=== PATIENT | female | born 2000 | race Caucasian/White ===

== ENCOUNTER 2019-12-16 15:47 | Emergency (ER) | payer MEDICAID ==
[2019-12-16 16:21] VITALS: BP 118/62; PULSE 75; O2SAT 99
--- NOTE | 2019-12-16 16:30 | ERPHSYRPT ---
- History of Present Illness Time Seen by Provider: 12/16/19 16:25 Source: patient Exam Limitations: no limitations Patient Subjective Stated Complaint: pt to ER with complaints of swelling to her chin/neck area. pt states she also feels like she has something wrong with the back of her teeth on the R side. Triage Nursing Assessment: pt A&Ox4. pt ambulatory. afebrile. Physician History: Patient is a 19-year-old female presents to our ED with complaints of swelling under her chin. Symptoms started today. Patient has had the same in the past however it spontaneously resolved. Patient states that she has a slight dental ache at the right posterior molar. Patient also states that the bugle mucosa at this location is a little tender. Symptoms are constant. No fever. No nausea or vomiting. No difficulty swallowing. No difficulty breathing. No trauma. Patient voices no other complaints at this time. Timing/Duration: days (Symptoms started today.) Severity: mild (Patient declined pain medication.) ENT Location: mouth Modifying Factors: Improves With: nothing Associated Symptoms: No ear pain (R), No ear pain (L), No cough, No fever, No chills, No change in hearing, No drooling, No facial pain/swelling, No nasal foreign body, No neck pain, No swollen glands Allergies/Adverse Reactions: codeine Allergy (Verified 12/16/19 16:21) Shortness of Breath SOB Hx Tetanus, Diphtheria Vaccination/Date Given: No Hx Influenza Vaccination/Date Given: No Hx Pneumococcal Vaccination/Date Given: No Immunizations Up to Date: Yes Travel Risk - International Travel Have you traveled outside of the country in past 3 weeks: No Have you or anyone close to you been diagnosed with or: No Do your reside in a community with a known COVID-19 case?: Yes If Yes where:: [place] - Coronavirus Screening Has patient experienced Coronavirus symptoms: No - Review of Systems Constitutional: No Symptoms, No Fever, No Chills Eyes: No Symptoms Ears, Nose, & Throat: No Symptoms Respiratory: No Symptoms, No Cough, No Dyspnea Cardiac: No Symptoms, No Chest Pain, No Edema, No Syncope Abdominal/Gastrointestinal: No Symptoms, No Abdominal Pain, No Nausea, No Vomiting, No Diarrhea Genitourinary Symptoms: No Symptoms, No Dysuria Musculoskeletal: No Symptoms, No Back Pain, No Neck Pain Skin: No Symptoms, No Rash Neurological: No Symptoms, No Dizziness, No Focal Weakness, No Sensory Changes Psychological: No Symptoms Endocrine: No Symptoms Hematologic/Lymphatic: No Symptoms Immunological/Allergic: No Symptoms All Other Systems: Reviewed and Negative - Past Medical History Pertinent Past Medical History: No Neurological History: No Pertinent History ENT History: No Pertinent History Cardiac History: No Pertinent History Respiratory History: No Pertinent History Endocrine Medical History: No Pertinent History GI Medical History: No Pertinent History History: No Pertinent History Psycho-Social History: Depression Female Reproductive Disorders: Other - Past Surgical History Past Surgical History: Yes Neuro Surgical History: No Pertinent History Cardiac: No Pertinent History Respiratory: No Pertinent History Gastrointestinal: No Pertinent History Genitourinary: No Pertinent History Musculoskeletal: No Pertinent History Female Surgical History: No Pertinent History Other Surgical History: TONSILECTOMY - Social History Smoking Status: Current every day smoker How long have you smoked: YR Exposure to second hand smoke: Yes Drug Use: none Patient Lives Alone: No - Female History Hx Last Menstrual Period: 11/19/2019 Hx Now: Yes - Nursing Vital Signs Nursing Vital Signs: Initial Vital Signs Temperature 98.2 F 12/16/19 16:14 Pulse Rate 75 12/16/19 16:14 Respiratory Rate 16 12/16/19 16:14 Blood Pressure 118/62 12/16/19 16:14 O2 Sat by Pulse Oximetry 99 12/16/19 16:14 Pain Scale Pain Intensity 10 - Physical Exam General Appearance: no apparent distress, alert Eye Exam: bilateral eye: normal inspection, PERRL, EOMI Ear Exam: bilateral ear: auricle normal, canal normal, TM normal Nasal Exam: normal inspection Throat Exam: pharynx normal, moist mucus membranes, No dental tenderness, No excessive drooling, No foreign body, No mandibular swelling, No maxillary swelling, No pharynx swelling, No tongue swollen, No tonsillar exudate, No trismus, No uvula swelling (Patient has swelling at the submental area. Physical exam concerning for possible early Tory's angina.) Neck Exam: supple Cardiovascular/Respiratory Exam: normal breath sounds, regular rate/rhythm Abdominal Exam: non-tender, soft Neurologic Exam: alert, oriented x 3, sensation nml, No motor deficits Skin Exam: normal color, warm, dry SpO2 Interpretation: normal SpO2: 99 O2 Delivery: Room Air - Course Nursing assessment & vital signs reviewed: Yes - Progress Progress: improved Progress Note: 12/16/19 16:37 Does the possibility of Tory's angina. Patient advised to undergo a CAT scan to assess for possible abscess formation. Patient declined. Patient does not want any IV. Patient consents to oral antibiotics at this time. She declined IV antibiotics. Patient states she will try outpatient oral antibiotic therapy for the next couple days and if symptoms do not improve she will return to our ED for further evaluation. we discussed the risks of a late or delayed diagnosis including worsening of symptoms, increased risk of morbidity, mortality, the possibility of short and termite technician disability. In spite of her risks, Patient had decided on oral antibiotic at this time. She declined antibiotic administration in our ED and states she will start her oral antibiotics today. 12/16/19 16:43 Counseled pt/family regarding: diagnosis, need for follow-up - Departure Departure Disposition: Home Clinical Impression: Sublingual infection Condition: Stable Critical Care Time: No Referrals: ARIEL WEBB [Primary Care Provider] - Additional Instructions: Discharge/Care Plan KAVYA PEPE XIMENA was seen on 12/16/19 in the Emergency Room. The patient was counseled regarding Diagnosis,Lab results, Imaging studies, need for follow up and when to return to the Emergency Room. Prescriptions given: Discharge Note I have spoken with the patient and/or caregivers. I have explained the patient' s condition, diagnosis and treatment plan based on the information available to me at this time. I have answered the patient's and/or caregiver's questions and addressed any concerns. The patient and/or caregivers have as good understanding of the patient's diagnosis, condition and treatment plan as can be expected at this point. The vital signs have been stable. The patient's condition is stable and appropriate for discharge from the emergency department. The patient will pursue further outpatient evaluation with the primary care physician or other designated or consulting physician as outlined in the discharge instructions. The patient and/or caregivers are agreeable to this plan of care and follow-up instructions have been explained in detail. The patient and/or caregivers have received these instruction. The patient/and or caregivers are aware that any significant change in condition or worsening of symptoms should prompt an immediate return to this or the closest emergency department or call 911. Prescriptions: clindamycin HCL [Clindamycin HCl] 300 mg PO QID 7 Days #28 capsule
== END 2019-12-16 16:43 | disposition home or self-care (01) ==
LOC: ED 15:47
DX: K11.8 Other diseases of salivary glands (principal)
CPT/HCPCS: 99283

== ENCOUNTER 2020-08-05 10:46 | Emergency (ER) | payer SELFPAY ==
[2020-08-05] MEDS ORDERED: Zofran 4 MG/2 ML VIAL IV ONE ×2 (11:11→11:26)
[2020-08-05 11:18] VITALS: O2SAT 98
[2020-08-05] MEDS ORDERED: Zofran 4 MG/2 ML VIAL ONE (11:19)
[2020-08-05 12:03] LABS: BASOPHIL % 0.3 % (0.0-0.4); Basophil (Absolute #) 0.04 (0-0.4); Eosinophil % 2.8 % (0.00-5.0); Hemoglobin 14.1 gm/dl (12.0-16.0); Lymphocyte (Absolute #) 2.36 (1.0-4.6); Lymphocytes % 16.3 % (24.0-44.0); Mean Cell Volume 91.7 fl (78-100); Mean Corpuscular Hemoglobin 30.1 pg (26-32); Mean Corpuscular Hgb Concent. 32.8 g/dl (32-36); Mean Platelet Volume 10.6 fl (7.5-11.0); Monocyte (Absolute #) 0.89 (0.0-1.3); Monocytes % 6.1 % (0.0-12.0); Neutrophil % 74.5 % (36.0-66.0); Platelet Count 278 K/mm3 (150-450); Red Blood Count 4.69 M/mm3 (4.1-5.4); Red Cell Distribution Width 12.9 % (11.5-14.0); White Blood Count 14.5 K/mm3 (4.0-10.5)
[2020-08-05 12:09] VITALS: BP 127/76; PULSE 85
[2020-08-05 12:15] LABS: ALBUMIN 4.3 g/dL (3.5-5.0); ALKALINE PHOSPHATASE 81 U/L (38-126); AMYLASE 61 U/L (30-110); ANION GAP 9.9 MEQ/L (5-15); BLOOD UREA NITROGEN 14 mg/dL (7-17); CHLORIDE 108 mmol/L (98-107); Calcium 9.3 mg/dL (8.4-10.2); Carbon Dioxide 25 mmol/L (22-30); EST GLOMERULAR FILTRATION RATE > 60.0 ML/MIN; Glucose 101 mg/dL (74-106); LIPASE 62 U/L (23-300); SGOT/AST 34 U/L (14-36); SGPT/ALT 56 U/L (0-35); SODIUM 138 mmol/L (137-145); Total Protein 7.5 g/dL (6.3-8.2)
--- NOTE | 2020-08-05 12:48 | ERPHSYRPT ---
- History of Present Illness Time Seen by Provider: 08/05/20 11:03 Source: patient Exam Limitations: no limitations Patient Subjective Stated Complaint: vomiting Triage Nursing Assessment: Patient ambulated back to ED and transferred self to bed. Patient A+O X3. Patient's skin pink, warm and dry. Patient complains of vomiting every morning when she wakes up for one week. Patient states she wakes up and feel shaky in the morning then vomits and feels better. Patient also complains of mouth pain to the right side of cheek. Abdomen soft and round with BS X 4. Physician History: 20 years old fairly healthy female presented in the ER with chief complaint of 1 week history of morning sickness. Patient reports she wakes up, feels shaky and vomits once or twice for almost 1 week on a daily basis and her symptoms imp roved. Denies any abdominal pain associated with it. No diarrhea fever or chills. Denies any cough or shortness of breath. Denies any sick contact. Patient thinks she might be Timing/Duration: week(s) (1), intermittent, improved Severity: moderate Modifying Factors: Improves With: nothing Associated Symptoms: nausea, vomiting, No abdominal pain Allergies/Adverse Reactions: codeine Allergy (Verified 08/05/20 11:03) Shortness of Breath SOB Hx Tetanus, Diphtheria Vaccination/Date Given: No Hx Influenza Vaccination/Date Given: No Hx Pneumococcal Vaccination/Date Given: No Immunizations Up to Date: Yes Travel Risk - International Travel Have you traveled outside of the country in past 3 weeks: No - Coronavirus Screening Are you exhibiting any of the following symptoms?: No Symptoms: Vomiting/Diarrhea Close contact with a COVID-19 positive Pt in past 14-21 Days: No - Review of Systems Constitutional: No Symptoms Eyes: No Symptoms Ears, Nose, & Throat: No Symptoms Respiratory: No Symptoms Cardiac: No Symptoms Abdominal/Gastrointestinal: Nausea, Vomiting Genitourinary Symptoms: No Symptoms Musculoskeletal: No Symptoms Skin: No Symptoms Neurological: No Symptoms Psychological: No Symptoms Endocrine: No Symptoms Hematologic/Lymphatic: No Symptoms Immunological/Allergic: No Symptoms - Past Medical History Pertinent Past Medical History: No Neurological History: No Pertinent History ENT History: No Pertinent History Cardiac History: No Pertinent History Respiratory History: No Pertinent History Endocrine Medical History: No Pertinent History GI Medical History: No Pertinent History History: No Pertinent History Psycho-Social History: Depression Female Reproductive Disorders: Other - Past Surgical History Past Surgical History: Yes Neuro Surgical History: No Pertinent History Cardiac: No Pertinent History Respiratory: No Pertinent History Gastrointestinal: No Pertinent History Genitourinary: No Pertinent History Musculoskeletal: No Pertinent History Female Surgical History: No Pertinent History Other Surgical History: TONSILECTOMY - Social History Smoking Status: Current every day smoker How long have you smoked: YR Exposure to second hand smoke: Yes Drug Use: marijuana Patient Lives Alone: No - Female History Hx Now: No - Nursing Vital Signs Nursing Vital Signs: Initial Vital Signs Temperature 97.7 F 08/05/20 11:04 Pulse Rate 101 H 08/05/20 11:04 Respiratory Rate 18 08/05/20 11:04 Blood Pressure 130/96 08/05/20 11:04 O2 Sat by Pulse Oximetry 98 08/05/20 11:04 Pain Scale Pain Intensity 8 - Physical Exam General Appearance: no apparent distress, alert Eye Exam: PERRL/EOMI, eyes nml inspection Ears, Nose, Throat Exam: normal ENT inspection, TMs normal, pharynx normal Neck Exam: normal inspection, non-tender, supple, full range of motion Respiratory Exam: normal breath sounds, lungs clear, No chest tenderness Cardiovascular Exam: regular rate/rhythm, normal heart sounds Gastrointestinal/Abdomen Exam: soft, normal bowel sounds, No tenderness Back Exam: normal inspection, normal range of motion Extremity Exam: normal inspection, normal range of motion, pelvis stable Neurologic Exam: alert, oriented x 3, cooperative Skin Exam: normal color SpO2 Interpretation: normal SpO2: 98 O2 Delivery: Room Air Ordered Tests: Active Orders 24 hr Category Date Time Status IV Insertion STAT Care 08/05/20 11:11 Completed AMYLASE Stat Lab 08/05/20 11:28 Completed CBC W DIFF Stat Lab 08/05/20 11:28 Completed CMP Stat Lab 08/05/20 11:28 Completed HCG,QUALITATIVE URINE Stat Lab 08/05/20 11:18 Completed LIPASE Stat Lab 08/05/20 11:28 Completed TROPONIN Q3H Lab 08/05/20 11:15 Completed Medication Summary Discontinued Medications Generic Name Dose Route Start Last Admin Trade Name Freq PRN Reason Stop Dose Admin Ondansetron HCl 4 mg 08/05/20 11:11 08/05/20 11:28 Zofran 4 Mg/2 Ml Vial IV 08/05/20 11:12 Not Given STAT ONE Ondansetron HCl Confirm 08/05/20 11:19 Zofran 4 Mg/2 Ml Vial Administered 08/05/20 11:20 Dose 4 mg .ROUTE .STK-MED ONE Ondansetron HCl 4 mg 08/05/20 11:26 08/05/20 11:27 Zofran 4 Mg/2 Ml Vial IV 08/05/20 11:27 4 mg STAT ONE Administration Lab/Rad Data: Laboratory Result Diagrams 08/05/20 11:28 08/05/20 11:28 Laboratory Results 08/05/20 08/05/20 08/05/20 Range/Units 11:28 11:28 11:18 WBC 14.5 H (4.0-10.5) K/mm3 RBC 4.69 (4.1-5.4) M/mm3 Hgb 14.1 (12.0-16.0) gm/dl Hct 43.0 (35-47) % MCV 91.7 (78-100) fl MCH 30.1 (26-32) pg MCHC 32.8 (32-36) g/dl RDW 12.9 (11.5-14.0) % Plt Count 278 (150-450) K/mm3 MPV 10.6 (7.5-11.0) fl Gran % 74.5 H (36.0-66.0) % Eos # (Auto) 0.40 (0-0.5) Absolute Lymphs (auto) 2.36 (1.0-4.6) Absolute Monos (auto) 0.89 (0.0-1.3) Lymphocytes % 16.3 L (24.0-44.0) % Monocytes % 6.1 (0.0-12.0) % Eosinophils % 2.8 (0.00-5.0) % Basophils % 0.3 (0.0-0.4) % Absolute Granulocytes 10.80 H (1.4-6.9) Basophils # 0.04 (0-0.4) Sodium 138 (137-145) mmol/L Potassium 4.0 (3.5-5.1) mmol/L Chloride 108 H (98-107) mmol/L Carbon Dioxide 25 (22-30) mmol/L Anion Gap 9.9 (5-15) MEQ/L BUN 14 (7-17) mg/dL Creatinine 0.60 (0.52-1.04) mg/dL Estimated GFR > 60.0 ML/MIN Glucose 101 (74-106) mg/dL Calcium 9.3 (8.4-10.2) mg/dL Total Bilirubin 0.40 (0.2-1.3) mg/dL AST 34 (14-36) U/L ALT 56 H (0-35) U/L Alkaline Phosphatase 81 (38-126) U/L Troponin I (0.000-0.034) ng/mL Serum Total Protein 7.5 (6.3-8.2) g/dL Albumin 4.3 (3.5-5.0) g/dL Amylase 61 (30-110) U/L Lipase 62 (23-300) U/L Urine HCG, Qual NEGATIVE (Negative) 08/05/20 Range/Units 11:15 WBC (4.0-10.5) K/mm3 RBC (4.1-5.4) M/mm3 Hgb (12.0-16.0) gm/dl Hct (35-47) % MCV (78-100) fl MCH (26-32) pg MCHC (32-36) g/dl RDW (11.5-14.0) % Plt Count (150-450) K/mm3 MPV (7.5-11.0) fl Gran % (36.0-66.0) % Eos # (Auto) (0-0.5) Absolute Lymphs (auto) (1.0-4.6) Absolute Monos (auto) (0.0-1.3) Lymphocytes % (24.0-44.0) % Monocytes % (0.0-12.0) % Eosinophils % (0.00-5.0) % Basophils % (0.0-0.4) % Absolute Granulocytes (1.4-6.9) Basophils # (0-0.4) Sodium (137-145) mmol/L Potassium (3.5-5.1) mmol/L Chloride (98-107) mmol/L Carbon Dioxide (22-30) mmol/L Anion Gap (5-15) MEQ/L BUN (7-17) mg/dL Creatinine (0.52-1.04) mg/dL Estimated GFR ML/MIN Glucose (74-106) mg/dL Calcium (8.4-10.2) mg/dL Total Bilirubin (0.2-1.3) mg/dL AST (14-36) U/L ALT (0-35) U/L Alkaline Phosphatase (38-126) U/L Troponin I < 0.012 (0.000-0.034) ng/mL Serum Total Protein (6.3-8.2) g/dL Albumin (3.5-5.0) g/dL Amylase (30-110) U/L Lipase (23-300) U/L Urine HCG, Qual (Negative) - Progress Progress: improved Progress Note: 08/05/20 she is given Zofran. She does not have any abdominal pain, lungs clear to auscultation bilaterally. Nonfocal neuro exam. Do not think she needs any imaging. Baseline work-up showed white count of 14 but no obvious focus of infection. She is given Zofran to go home to take as needed and outpatient follow-up. Discussed signs symptoms of worsening needing return to ER which she seems understanding. - Departure Departure Disposition: Home Clinical Impression: Nausea & vomiting Qualifiers: Vomiting type: unspecified Vomiting Intractability: non-intractable Qualified Code(s): R11.2 - Nausea with vomiting, unspecified Condition: Stable Critical Care Time: No Referrals: ARIEL SHELBY [Primary Care Provider] - Follow Up with PCP/3 days Instructions: Nausea and Vomiting, Adult (DC) Additional Instructions: Keep yourself well-hydrated. Take Zofran as needed. Follow-up with primary care for reevaluation. Return to ER for any worsening. Prescriptions: Ondansetron ODT 4 MG [Zofran Odt 4 mg] 4 mg PO Q6H PRN PRN #10 tab.rapdis PRN Reason: Vomiting
== END 2020-08-05 13:00 | disposition home or self-care (01) ==
LOC: ED 10:46
DX: R11.2 Nausea with vomiting, unspecified (principal)
CPT/HCPCS: 36000; 36415; 80053; 82150; 83690; 84484; 84703; 85025; 96374; 99284; J2405